=== PATIENT | female | born 1960 | race Caucasian/White ===

== ENCOUNTER 2017-02-10 16:30 | Emergency (ER) | payer BC ==
--- NOTE | 2017-03-07 21:30 | ER ---
ADMIT: 02/10/2017 RM/LOC: ER [facility] MR#: [id number] [facility] [address] [place] [id number] MOLINA MARTIN [address] [place] [address] Emergency Room Report SEX: F AGE: 57 : 1960 DATE: 02/10/2017 ADDENDUM: This patient comes into the ER because for the last 5 days, she has had a swollen lip. She stated it started out as having a cold sore but now it is quite swollen and hard. She was seen at Urgent Care twice. The first time, they put her on Bactrim and the second time, they put her on a flecainide cream. On physical exam, she has a very hard indurated lower lip that is fluctuant. I did a mental block using lidocaine and then made a small incision with an 11 blade and expressed quite a bit of purulent drainage. There were that I also broke up. I will have her continue with Keflex, do moist heat and follow up with her primary in the next couple of days if not getting better. Please see my T-sheet. LAMAR Tatum / Chung Vallejo MD / carroll JOB #: [id number] CC: Chung Vallejo MD, Attending Physician Smith Myers MD, Family Physician
== END 2017-02-10 18:30 | disposition home or self-care (01) ==
LOC: ER 16:30
PROC: 0C91XZZ Drainage of Lower Lip, External Approach (ICD-10-PCS; principal; 2017-02-10)
DX: K13.0 Diseases of lips (principal); I10 Essential (primary) hypertension; Z88.0 Allergy status to penicillin; Z79.899 Other long term (current) drug therapy